=== PATIENT | female | born 1970 | race Asian ===

== ENCOUNTER 2017-07-16 08:50 | Emergency (ER) | payer SELFPAY ==
[~2017-07-16] VITALS: Ht 162.6 cm; Wt 68.0 kg
[2017-07-16 08:56] VITALS: BP 131/69
--- NOTE | 2017-07-16 09:02 | NUR ---
PATIENT TO ER BED 2
--- NOTE | 2017-07-16 09:03 | NUR ---
47 F BIB SELF WITH C/O PRODUCTIVE COUGH X 4 DAYS WITH 6/10 CONSTANT BL EAR, AND 6/10 CONSTANT HEACHACE "FROM COUGHING"; PT ALSO REPORTS PT REPORTS N/V AND FEVER ON FIRST DAY. PT IS AOX4 WITH STEADY GAIT. RR ARE EVEN AND UNLABORED. PT POTISIONED TO COMFORT, BED DOWN. NAD. AWAITING ER MD SARMIENTO. WILL CONTINUE TO MONITOR.
--- NOTE | 2017-07-16 09:09 | NUR ---
DR. PHILLIPS BEDSIDE EVALUATING PATIENT
[2017-07-16] MEDS ORDERED: KETOROLAC 30 MG/ML VIAL IM ONE (09:15)
[2017-07-16 09:45] VITALS: BP 121/83
--- NOTE | 2017-07-16 09:45 | NUR ---
Patient discharged with v/s stable. Written and verbal after care instructions given and explained. Patient alert, oriented and verbalized understanding of instructions. Ambulatory with steady gait. All questions addressed prior to discharge. ID band removed. Patient advised to follow up with PMD. Rx of Naproxen and Codeine/Promethazine given. Patient educated on indication of medication including possible reaction and side effects. Opportunity to ask questions provided and answered.
== END 2017-07-16 09:45 | disposition home or self-care (01) ==
LOC: MED 08:50
DX: J06.9 Acute upper respiratory infection, unspecified (principal)
CPT/HCPCS: 36415; 71045; 87804; 96372; 99285; J1885; Q0092